=== PATIENT | male | born 1995 | race Native Hawaiian/Other Pacific Islander ===

== ENCOUNTER 2018-01-21 12:22 | Emergency (ER) | payer SELFPAY ==
[~2018-01-21] VITALS: Ht 172.7 cm; Wt 59.0 kg
[2018-01-21] MEDS ORDERED: LORAZEPAM 2 MG/1 ML VIAL IM ONE (12:30)
[2018-01-21] MEDS ORDERED: ONDANSETRON 4 MG/2 ML VIAL IM ONE ×2 (12:30→13:45)
[2018-01-21] MEDS ORDERED: ONDANSETRON 4 MG/2 ML VIAL ONE ×2 (12:31→13:40)
[2018-01-21] MEDS ORDERED: LORAZEPAM 2 MG/1 ML VIAL ONE (12:31)
--- NOTE | 2018-01-21 12:38 | NUR ---
PT IS IN ROOM #2B. DR SOTO EVALUATED THE PT.
[2018-01-21] MEDS ORDERED: MAG HYDROX/AL HYDROX/SIMETH 30 ML LIQUID UDC PO ONE (13:00)
[2018-01-21] MEDS ORDERED: DICYCLOMINE HCL 10 MG/5 ML UDC LIQ PO ONE (13:00)
[2018-01-21] MEDS ORDERED: MAG HYDROX/AL HYDROX/SIMETH 30 ML LIQUID UDC ONE (13:03)
[2018-01-21] MEDS ORDERED: DICYCLOMINE HCL 10 MG/5 ML UDC LIQ ONE (13:04)
[2018-01-21] MEDS ORDERED: HYDROMORPHONE 1 MG/1 ML DISP.SYRIN ONE (13:40)
[2018-01-21] MEDS ORDERED: HYDROMORPHONE 1 MG/1 ML DISP.SYRIN IM ONE (13:45)
--- NOTE | 2018-01-21 13:54 | NUR ---
PT WAS D/C TO HOME. D/C INSTRUCTIONS GIVEN TO THE PT. NO S/S OF DISTRESS AT THIS TIME. GAIT IS STABLE.
[2018-01-21 13:58] VITALS: BP 131/76
== END 2018-01-21 13:59 | disposition home or self-care (01) ==
LOC: ER 12:22
DX: F10.129 Alcohol abuse with intoxication, unspecified (principal); F12.10 Cannabis abuse, uncomplicated
CPT/HCPCS: 96372 ×4; 99284; A4663; J1170; J2060; J2405 ×2